=== PATIENT | male | born 1980 | race Caucasian/White ===

== ENCOUNTER 2022-02-05 07:49 | Emergency (ER) | payer OTHER ==
[~2022-02-05] VITALS: Ht 170.2 cm; Wt 81.7 kg
[2022-02-05] MEDS ORDERED: ONDANSETRON ODT4 MG PO (12:25)
[2022-02-05] MEDS ORDERED: DICYCLOMINE HCL20 MG PO (12:25)
[2022-02-05] MEDS ORDERED: OXYCODONE HCL5 MG PO (12:25)
== END 2022-02-05 12:56 | disposition home or self-care (01) ==
LOC: ED 07:49
DX: R19.7 Diarrhea, unspecified (principal); R10.9 Unspecified abdominal pain; Z88.5 Allergy status to narcotic agent; Z88.6 Allergy status to analgesic agent
CPT/HCPCS: 36415; 74177; 80053; 81001; 83690; 85025; 87045; 96361; 96375; 99284-25; J1885; J2405; J7030